=== PATIENT | female | born 1980 | race Two or more races ===

== ENCOUNTER 2024-05-08 12:22 | Inpatient (IN) | payer OTHER ==
[~2024-05-08] VITALS: Ht 157.5 cm; Wt 68.9 kg
--- NOTE | 2024-05-08 12:32 | NUR ---
PACIENTE ALERTA Y ORIENTADA X3 TRAIDA EN AMBULANCIA EN COMPANIA DE PARAMEDICOS. PACIENTE DE DERIAN. LARON DURBIN. PARAMEDICOS REFIEREN TRAER A PACIENTE POR OBSTRUCCION INTESTINAL. NGT COLOCADO. AL MOMENTO DE TRIAGE PACIENTE NO REFIERE DOLOR. SE JARAD S/V Y SE UBICA.
[2024-05-08] MEDS ORDERED: 0.9 % SODIUM CHLORIDE 1,000 ML IV STA (12:42)
--- NOTE | 2024-05-08 13:21 | NUR ---
PTE ALERTA Y ORIENTADA X3 SE LE ORIENTA SOBRE TX MEDICO LO CUAL REFIERE ENTENDER Y ACEPTAR SE REALIZAN MUESTRAS DE LAB BAJO MEDIDAS ASEPTICAS Y SE LE ADMINISTRA MEDICAMENTOS [facility] ORDEN MEDICA. PTE LLEGO CON NGT YA INSERTADO Y CANALIZADA. SE LE INSERTA KEY [facility] MEDICA BAJO MEDIDAS ASEPTICAS Y ESTERILES.
--- NOTE | 2024-05-08 13:34 | NUR ---
SE VERIFICA QUE NGT TOM EN LUGAR CON ESTOTOSCOPIO. SE AGNES CON SUCCION INTERMITENTE
[2024-05-08 14:32] LABS: HEMATOCRIT 32.3 % (36.0-45.00); MEAN CORPUSCULAR HEMOGLOBIN 21.1 pg (27.00-32.0); MEAN CORPUSCULAR HGB CONC 31.8 g/dl (32.0-36.0); PLATELET COUNT 448 K/uL (150-450); RED BLOOD COUNT 4.87 M/uL (4.00-6.00); RED CELL DISTRIBUTION WIDTH 18.3 % (11.5-14.5)
[2024-05-08 14:33] LABS: MEAN CELL VOLUME 66.5 fL (80.00-100.00)
[2024-05-08 14:36] LABS: HEMOGLOBIN 10.3 g/dL (12.0-15.00)
[2024-05-08 14:49] LABS: PH,URINE 5.5 (5.0-8.0); URINE APPEARANCE Cloudy; URINE BILIRRUBIN Small (NEGATIVE); URINE BLOOD Small; URINE COLOR Dark Yellow; URINE GLUCOSE Negative (NEGATIVE); URINE KETONE Trace (NEGATIVE); URINE LEUKOCYTE Trace; URINE NITRATE Negative
[2024-05-08 14:52] LABS: URINE BACTERIA 99.1 uL (0.0-1933); URINE CAST 6.77 uL (0.0-1.40); URINE EPITHELIAL CELLS 16.6 uL (0.0-38.8); URINE RBC 49.6 uL (0.0-20.8); URINE WBC 18.8 uL (0.0-23.2)
[2024-05-08 15:05] LABS: URINE PROTEIN 100 (NEGATIVE)
[2024-05-08 15:11] LABS: INR 1.02; PARTIAL THROMBOPLASTIN TIME 22.8 SECONDS (22.0-34.0); PROTHROMBIN TIME 11.1 SECONDS (9.0-11.5)
[2024-05-08 15:21] LABS: ALBUMIN 2.7 gm/dL (3.4-5.0); BILIRUBIN TOTAL 0.36 mg/dL (0.3-1.2); CALCIUM 9.2 mg/dL (8.5-10.1); CREATININE SERUM 0.86 mg/dL (0.55-1.02); GFR 72.36; POTASSIUM 3.23 mEq/L (3.5-5.1); TOTAL PROTEIN 8.7 gm/dL (6.4-8.2)
[2024-05-08] MEDS ORDERED: ONDANSETRON HCL 2 MG/ML VIAL IM SCH (15:28)
[2024-05-08] MEDS ORDERED: CIPROFLOXACIN IN 5 % DEXTROSE 400 MG/200 ML PIGGYBAG IV SCH (15:34)
[2024-05-08] MEDS ORDERED: ONDANSETRON HCL 2 MG/ML VIAL ONE (15:41)
[2024-05-08] MEDS ORDERED: CIPROFLOXACIN IN 5 % DEXTROSE 400 MG/200 ML PIGGYBAG IV ONE (15:41)
[2024-05-08] MEDS ORDERED: METRONIDAZOLE/SODIUM CHLORIDE 500 MG/100 ML PIGGYBACK IV ONE (15:42)
[2024-05-08 16:26] VITALS: BP 139/92
[2024-05-08] MEDS ORDERED: METRONIDAZOLE/SODIUM CHLORIDE 500 MG/100 ML PIGGYBACK IV SCH (17:00)
[2024-05-08] MEDS ORDERED: ACETAMINOPHEN 325 MG TABLET PO PRN (19:00)
[2024-05-08] MEDS ORDERED: SOD FERRIC GLUC COMPLX/SUCROSE 62.5 MG in 0.9 % SODIUM CHLORIDE 50 ML IV SCH (19:00)
[2024-05-08] MEDS ORDERED: MORPHINE SULFATE 4 MG/ML VIAL IV PRN (19:00)
[2024-05-08] MEDS ORDERED: 0.9 % SODIUM CHLORIDE 1,000 ML IV SCH (19:00)
[2024-05-08] MEDS ORDERED: POTASSIUM CHLORIDE 20MEQ/100ML H2O PB IV ONE ×2 (19:00→19:15)
[2024-05-08 20:13] LABS: COL EPI 120 SECONDS (82-175)
[2024-05-08] MEDS ORDERED: PANTOPRAZOLE SODIUM 40 MG/VIAL VIAL IV SCH (21:00)
[2024-05-08 23:55] VITALS: BP 124/80; O2SAT 100
[2024-05-09 03:00] VITALS: BP 122/72; O2SAT 96
[2024-05-09 07:44] LABS: HEMATOCRIT 28.8 % (36.0-45.00); HEMOGLOBIN 9.1 g/dL (12.0-15.00); MEAN CORPUSCULAR HEMOGLOBIN 21.2 pg (27.00-32.0); MEAN CORPUSCULAR HGB CONC 31.5 g/dl (32.0-36.0); PLATELET COUNT 438 K/uL (150-450); RED BLOOD COUNT 4.28 M/uL (4.00-6.00); RED CELL DISTRIBUTION WIDTH 17.6 % (11.5-14.5)
[2024-05-09] MEDS ORDERED: ACETAMINOPHEN 500 MG GEL..CAP PO PRN (07:45)
[2024-05-09] MEDS ORDERED: MORPHINE SULFATE 2 MG/ML CARTRIDGE IV PRN (07:45)
[2024-05-09 08:00] VITALS: BP 136/83; O2SAT 99
[2024-05-09 08:10] LABS: MEAN CELL VOLUME 67.2 fL (80.00-100.00)
[2024-05-09] MEDS ORDERED: ENOXAPARIN SODIUM 40 MG/0.4 ML SYRINGE SUBCUTANEO SCH (09:00)
[2024-05-09 09:01] LABS: CALCIUM 8.1 mg/dL (8.5-10.1); CREATININE SERUM 0.76 mg/dL (0.55-1.02); GFR 83.46; MAGNESIUM 2.1 mg/dL (1.8-2.4); PHOSPHOROUS 2.9 mg/dL (2.5-4.9); POTASSIUM 3.92 mEq/L (3.5-5.1)
[2024-05-09] MEDS ORDERED: FUROsemide 20 MG/2 ML VIAL IV SCH (10:30)
[2024-05-09 15:28] LABS: AMYLASE 74 U/L (25-115); LIPASE 90 U/L (13-75)
[2024-05-09] MEDS ORDERED: AMINO ACIDS 4.25 %/DEXTROSE 5% 1,000 ML PERIFERAL SCH (17:00)
[2024-05-09 17:10] VITALS: BP 133/83; O2SAT 98
[2024-05-10 00:04] VITALS: BP 124/80; O2SAT 96
[2024-05-10 03:49] LABS: HEMATOCRIT 35.9 % (36.0-45.00); HEMOGLOBIN 11.8 g/dL (12.0-15.00); MEAN CELL VOLUME 70.5 fL (80.00-100.00); MEAN CORPUSCULAR HEMOGLOBIN 23.1 pg (27.00-32.0); MEAN CORPUSCULAR HGB CONC 32.8 g/dl (32.0-36.0); PLATELET COUNT 416 K/uL (150-450); RED CELL DISTRIBUTION WIDTH 22.7 % (11.5-14.5)
[2024-05-10 04:00] LABS: CHOL HDL RATIO 5.1 (0-5.0)
[2024-05-10 09:27] VITALS: BP 108/69; O2SAT 96
[2024-05-10 15:41] VITALS: BP 117/84; O2SAT 95
[2024-05-11 00:16] VITALS: BP 94/60; O2SAT 96
[2024-05-11 06:49] LABS: HEMATOCRIT 35.9 % (36.0-45.00); HEMOGLOBIN 11.8 g/dL (12.0-15.00); MEAN CELL VOLUME 71.7 fL (80.00-100.00); MEAN CORPUSCULAR HEMOGLOBIN 23.5 pg (27.00-32.0); MEAN CORPUSCULAR HGB CONC 32.7 g/dl (32.0-36.0); PLATELET COUNT 388 K/uL (150-450); RED BLOOD COUNT 5.01 M/uL (4.00-6.00); RED CELL DISTRIBUTION WIDTH 22.6 % (11.5-14.5)
[2024-05-11 07:20] LABS: CALCIUM 8.2 mg/dL (8.5-10.1); CREATININE SERUM 0.62 mg/dL (0.55-1.02); GFR 105.56; MAGNESIUM 1.5 mg/dL (1.8-2.4); PHOSPHOROUS 2.7 mg/dL (2.5-4.9)
[2024-05-11 07:26] LABS: POTASSIUM 3.47 mEq/L (3.5-5.1)
[2024-05-11] MEDS ORDERED: MAGNESIUM SULFATE IN WATER 50 ML IV NR (11:00)
[2024-05-11] MEDS ORDERED: POTASSIUM CHLORIDE 20MEQ/100ML H2O PB IV NR (11:19)
[2024-05-11] MEDS ORDERED: PIPERACILLIN/TAZOBACTAM SODIUM 4.5 GM in 0.9 % SODIUM CHLORIDE 100 ML IV SCH (12:00)
[2024-05-11] MEDS ORDERED: DIATRIZOATE MEGLUMINE, SODIUM 30 ML BOTTLE PO NR (14:30)
[2024-05-11 17:00] VITALS: BP 133/76; O2SAT 95
[2024-05-11] MEDS ORDERED: DIATRIZOATE MEGLUMINE, SODIUM 30 ML BOTTLE ONE (18:34)
[2024-05-12] VITALS: BP 109/75; O2SAT 96
[2024-05-12 09:04] LABS: HEMATOCRIT 37.5 % (36.0-45.00); HEMOGLOBIN 12.4 g/dL (12.0-15.00); MEAN CELL VOLUME 71.5 fL (80.00-100.00); MEAN CORPUSCULAR HEMOGLOBIN 23.7 pg (27.00-32.0); MEAN CORPUSCULAR HGB CONC 33.1 g/dl (32.0-36.0); RED BLOOD COUNT 5.24 M/uL (4.00-6.00); RED CELL DISTRIBUTION WIDTH 22.9 % (11.5-14.5)
[2024-05-12 11:09] LABS: PLATELET COUNT 421 K/uL (150-450)
[2024-05-12 11:58] VITALS: BP 141/87; O2SAT 99
[2024-05-12 16:00] VITALS: BP 143/79; O2SAT 97
[2024-05-13 00:03] VITALS: BP 141/73; O2SAT 99
[2024-05-13 08:00] VITALS: BP 138/86; O2SAT 96
[2024-05-13 15:59] VITALS: BP 117/82; O2SAT 97
[2024-05-13] MEDS ORDERED: NA PHOS,M-B/NA PHOS,DI-BA 1 BOTTLE ENEMA RECTAL SCH (18:00)
[2024-05-14 00:10] VITALS: BP 147/84; O2SAT 97
[2024-05-14 06:48] LABS: HEMATOCRIT 39.3 % (36.0-45.00); HEMOGLOBIN 12.6 g/dL (12.0-15.00); MEAN CORPUSCULAR HEMOGLOBIN 23.1 pg (27.00-32.0); MEAN CORPUSCULAR HGB CONC 32.2 g/dl (32.0-36.0); PLATELET COUNT 388 K/uL (150-450); RED BLOOD COUNT 5.46 M/uL (4.00-6.00); RED CELL DISTRIBUTION WIDTH 23.3 % (11.5-14.5)
[2024-05-14 06:55] LABS: INR 1.18; PARTIAL THROMBOPLASTIN TIME 29.3 SECONDS (22.0-34.0); PROTHROMBIN TIME 12.7 SECONDS (9.0-11.5)
[2024-05-14] MEDS ORDERED: CEFTRIAXONE SODIUM 2,000 MG in 0.9 % SODIUM CHLORIDE 50 ML IV ONE (07:00)
[2024-05-14] MEDS ORDERED: METRONIDAZOLE/SODIUM CHLORIDE 200 ML IV ONE (07:00)
[2024-05-14] MEDS ORDERED: BUPIVACAINE HCL/MPF 0.5% 30ML VIAL ONE (07:02)
[2024-05-14] MEDS ORDERED: POVIDONE-IODINE 118 ML BOTT TOP ONE (07:02)
[2024-05-14] MEDS ORDERED: VISTASEAL DUAL APPICATOR 1 EACH APPL TOP ONE ×2 (07:03→14:15)
[2024-05-14] MEDS ORDERED: LIDOCAINE HCL 1%/EPINEPHRINE 20ML VIAL IJ ONE (07:03)
[2024-05-14] MEDS ORDERED: THROMBIN,HU/FIBRINOGEN/CALCIUM 10 ML SYRINGE TOP ONE ×4 (07:03→14:15)
[2024-05-14 07:28] LABS: ALBUMIN 2.3 gm/dL (3.4-5.0); BILIRUBIN TOTAL 0.34 mg/dL (0.3-1.2); BILIRUBIN,CONJUGATED 0.13 mg/dL (0.0-0.2); BILIRUBIN,UNCONJUGATED 0.21 mg/dL (0.0-0.6); CALCIUM 8.2 mg/dL (8.5-10.1); CREATININE SERUM 0.68 mg/dL (0.55-1.02); GFR 94.89; GLOBULINA 4.6 G/DL (2.4-3.5); POTASSIUM 3.06 mEq/L (3.5-5.1); TOTAL PROTEIN 6.9 gm/dL (6.4-8.2)
[2024-05-14] MEDS ORDERED: hydrALAZINE HCL 20 MG VIAL ONE (08:01)
[2024-05-14] MEDS ORDERED: CALCIUM GLUCONATE 100 MG/ML VIAL IV ONE (09:15)
[2024-05-14 10:18] LABS: UREA CLEARANCE 49.6 ML/MIN
[2024-05-14] MEDS ORDERED: MORPHINE SULFATE 4 MG/ML CARTRIDGE IV PRN (16:15)
[2024-05-14] MEDS ORDERED: DEXTROSE 50 % IN WATER 0.5 G/ML DISP.SYRIN IV PRN (16:15)
[2024-05-14] MEDS ORDERED: ONDANSETRON HCL 2 MG/ML VIAL IV PRN (16:15)
[2024-05-14] MEDS ORDERED: PIPERACILLIN/TAZOBACTAM SODIUM 3.375 GM VIAL IV ONE ×3 (16:28→19:49)
[2024-05-14] MEDS ORDERED: CEFAZOLIN SODIUM 1,000 MG VIAL ONE (16:28)
[2024-05-14] MEDS ORDERED: HYOSCYAMINE SULFATE 0.125 MG TAB.SUBL SL SCH (17:00)
[2024-05-14] MEDS ORDERED: METOCLOPRAMIDE HCL 5 MG/ML VIAL IV SCH (17:00)
[2024-05-14] MEDS ORDERED: GABAPENTIN 300 MG CAPSULE PO SCH (17:00)
[2024-05-14] MEDS ORDERED: SUGAMMADEX SODIUM 200 MG/2 ML VIAL IV ONE ×2 (17:23→18:30)
[2024-05-14] MEDS ORDERED: CEFAZOLIN SODIUM 1,000 MG VIAL IV ONE (18:30)
[2024-05-14 18:43] LABS: HEMATOCRIT 38.7 % (36.0-45.00); HEMOGLOBIN 12.1 g/dL (12.0-15.00); MEAN CELL VOLUME 80.1 fL (80.00-100.00); MEAN CORPUSCULAR HEMOGLOBIN 25.1 pg (27.00-32.0); MEAN CORPUSCULAR HGB CONC 31.3 g/dl (32.0-36.0); PLATELET COUNT 330 K/uL (150-450); RED BLOOD COUNT 4.83 M/uL (4.00-6.00)
[2024-05-14] MEDS ORDERED: MORPHINE SULFATE 4 MG/ML VIAL IV ONE ×2 (18:45→19:15)
[2024-05-14] MEDS ORDERED: AMINO ACIDS 4.25 %/DEXTROSE 5% 1,000 ML PERIFERAL SCH (18:52)
[2024-05-14] MEDS ORDERED: METOCLOPRAMIDE HCL 5 MG/ML VIAL ONE (19:44)
[2024-05-14 20:05] LABS: INR 1.29; PARTIAL THROMBOPLASTIN TIME 29.5 SECONDS (22.0-34.0); PROTHROMBIN TIME 13.8 SECONDS (9.0-11.5)
[2024-05-14] MEDS ORDERED: FAMOTIDINE/PF 20 MG/2 ML VIAL IV PUSH SCH (21:00)
[2024-05-14 21:19] VITALS: BP 111/76; O2SAT 100
[2024-05-14 23:18] LABS: HEMATOCRIT 36.6 % (36.0-45.00); HEMOGLOBIN 12.1 g/dL (12.0-15.00); MEAN CELL VOLUME 77.2 fL (80.00-100.00); MEAN CORPUSCULAR HEMOGLOBIN 25.6 pg (27.00-32.0); MEAN CORPUSCULAR HGB CONC 33.1 g/dl (32.0-36.0); PLATELET COUNT 237 K/uL (150-450); RED BLOOD COUNT 4.74 M/uL (4.00-6.00); RED CELL DISTRIBUTION WIDTH 23.5 % (11.5-14.5)
[2024-05-14] MEDS ORDERED: RINGERS SOLUTION,LACTATED 1,000 ML IV SCH (23:45)
[2024-05-15 01:33] VITALS: BP 123/83; O2SAT 99
[2024-05-15 06:56] LABS: HEMOGLOBIN 10.9 g/dL (12.0-15.00); MEAN CELL VOLUME 76.2 fL (80.00-100.00); MEAN CORPUSCULAR HEMOGLOBIN 25.9 pg (27.00-32.0); PLATELET COUNT 216 K/uL (150-450); RED CELL DISTRIBUTION WIDTH 23.6 % (11.5-14.5)
[2024-05-15 07:29] LABS: ALBUMIN 1.6 gm/dL (3.4-5.0); CALCIUM 6.9 mg/dL (8.5-10.1); CREATININE SERUM 0.71 mg/dL (0.55-1.02); GFR 90.27; PHOSPHOROUS 2.4 mg/dL (2.5-4.9); POTASSIUM 3.18 mEq/L (3.5-5.1)
[2024-05-15 07:52] LABS: MAGNESIUM 1.3 mg/dL (1.8-2.4)
[2024-05-15 08:48] VITALS: BP 111/81; O2SAT 95
[2024-05-15] MEDS ORDERED: MEPERIDINE HCL/PF 50 MG/ML VIAL IV SCH (09:11)
[2024-05-15] MEDS ORDERED: PROMETHAZINE HCL 25 MG/ML AMPUL IV NR (09:30)
[2024-05-15] MEDS ORDERED: MAGNESIUM SULFATE IN WATER 50 ML IV NR (11:00)
[2024-05-15] MEDS ORDERED: POTASSIUM CHLORIDE 20MEQ/100ML H2O PB IV NR (13:00)
[2024-05-15] MEDS ORDERED: PROMETHAZINE HCL 50 MG/ML AMPUL IV SCH (14:00)
[2024-05-15] MEDS ORDERED: PROMETHAZINE HCL 25 MG/ML AMPUL IV SCH (14:00)
[2024-05-15 16:00] VITALS: BP 138/78; BP 143/69; O2SAT 98; O2SAT 99
[2024-05-15] MEDS ORDERED: AMINO ACIDS 4.25 %/DEXTROSE 5% 1,000 ML PERIFERAL SCH (17:00)
[2024-05-15] MEDS ORDERED: POTASSIUM PHOS,M-BASIC-D-BASIC 15 MM in 0.9 % SODIUM CHLORIDE 250 ML IV ONE (19:00)
[2024-05-16 00:10] VITALS: BP 128/87; O2SAT 95
[2024-05-16 07:53] LABS: HEMATOCRIT 29.2 % (36.0-45.00); HEMOGLOBIN 9.7 g/dL (12.0-15.00); MEAN CELL VOLUME 76.7 fL (80.00-100.00); MEAN CORPUSCULAR HEMOGLOBIN 25.6 pg (27.00-32.0); MEAN CORPUSCULAR HGB CONC 33.3 g/dl (32.0-36.0); PLATELET COUNT 254 K/uL (150-450); RED BLOOD COUNT 3.81 M/uL (4.00-6.00); RED CELL DISTRIBUTION WIDTH 24.2 % (11.5-14.5)
[2024-05-16 08:00] VITALS: BP 131/88; O2SAT 97
[2024-05-16 08:31] LABS: CALCIUM 7.7 mg/dL (8.5-10.1); CREATININE SERUM 0.43 mg/dL (0.55-1.02); GFR 161.03; MAGNESIUM 1.8 mg/dL (1.8-2.4); POTASSIUM 3.24 mEq/L (3.5-5.1)
[2024-05-16] MEDS ORDERED: SOD FERRIC GLUC COMPLX/SUCROSE 62.5 MG in 0.9 % SODIUM CHLORIDE 50 ML IV SCH (09:00)
[2024-05-16] MEDS ORDERED: AMINOCAPROIC ACID 250 MG/ML VIAL IV STA (09:00)
[2024-05-16] MEDS ORDERED: ENOXAPARIN SODIUM 40 MG/0.4 ML SYRINGE SUBCUTANEO SCH (09:00)
[2024-05-16] MEDS ORDERED: FUROsemide 20 MG/2 ML VIAL IV SCH (09:15)
[2024-05-16] MEDS ORDERED: POTASSIUM PHOS,M-BASIC-D-BASIC 15 MM in 0.9 % SODIUM CHLORIDE 250 ML IV NR (11:30)
[2024-05-16] MEDS ORDERED: POTASSIUM CHLORIDE 20MEQ/100ML H2O PB IV NR (11:30)
[2024-05-16] MEDS ORDERED: MAGNESIUM SULFATE IN WATER 50 ML IV NR (11:30)
[2024-05-16] MEDS ORDERED: AMINOCAPROIC ACID 20 MG/ML ML IV SCH (12:00)
[2024-05-16 16:00] VITALS: BP 108/73; O2SAT 97
[2024-05-17 01:48] VITALS: BP 98/65; O2SAT 97
[2024-05-17] MEDS ORDERED: THIAMINE HCL 100 MG/ML 2 ML VIAL IV SCH (09:29)
[2024-05-17] MEDS ORDERED: MULTIVIT INFUSN,ADULT 4,VIT K 10 ML VIAL IV SCH (09:29)
[2024-05-17 09:48] VITALS: BP 129/91; O2SAT 97
[2024-05-17] MEDS ORDERED: PANTOPRAZOLE SODIUM 40 MG/VIAL VIAL IV STA (10:34)
[2024-05-17 11:34] LABS: HEMATOCRIT 36.1 % (36.0-45.00); HEMOGLOBIN 12.2 g/dL (12.0-15.00); MEAN CELL VOLUME 78.4 fL (80.00-100.00); MEAN CORPUSCULAR HEMOGLOBIN 26.6 pg (27.00-32.0); MEAN CORPUSCULAR HGB CONC 33.9 g/dl (32.0-36.0); PLATELET COUNT 346 K/uL (150-450); RED BLOOD COUNT 4.61 M/uL (4.00-6.00); RED CELL DISTRIBUTION WIDTH 22.5 % (11.5-14.5)
[2024-05-17 12:41] LABS: CALCIUM 8.1 mg/dL (8.5-10.1); CREATININE SERUM 0.68 mg/dL (0.55-1.02); GFR 94.89; PHOSPHOROUS 2.1 mg/dL (2.5-4.9); POTASSIUM 3.37 mEq/L (3.5-5.1)
[2024-05-17] MEDS ORDERED: POTASSIUM PHOS,M-BASIC-D-BASIC 3 MM/ML VIAL IV NR (13:00)
[2024-05-17] MEDS ORDERED: POTASSIUM CHLORIDE 20MEQ/100ML H2O PB IV NR (13:15)
[2024-05-17 16:00] VITALS: BP 139/89; O2SAT 95
[2024-05-17] MEDS ORDERED: FAMOTIDINE/PF 20 MG/2 ML VIAL IV PUSH SCH (21:00)
[2024-05-18] VITALS: BP 134/82; O2SAT 94
[2024-05-18] MEDS ORDERED: PROMETHAZINE HCL 25 MG/ML AMPUL IV SCH (02:00)
[2024-05-18] MEDS ORDERED: MEPERIDINE HCL/PF 50 MG/ML VIAL IV SCH (02:00)
[2024-05-18 06:33] LABS: HEMATOCRIT 33.6 % (36.0-45.00); HEMOGLOBIN 11.6 g/dL (12.0-15.00); MEAN CORPUSCULAR HEMOGLOBIN 26.9 pg (27.00-32.0); MEAN CORPUSCULAR HGB CONC 34.5 g/dl (32.0-36.0); PLATELET COUNT 486 K/uL (150-450); RED CELL DISTRIBUTION WIDTH 22.1 % (11.5-14.5)
[2024-05-18 07:18] LABS: BILIRUBIN TOTAL 1.33 mg/dL (0.3-1.2); CALCIUM 7.9 mg/dL (8.5-10.1); CREATININE SERUM 0.48 mg/dL (0.55-1.02); GFR 141.83; GLOBULINA 3.8 G/DL (2.4-3.5); MAGNESIUM 1.6 mg/dL (1.8-2.4); PHOSPHOROUS 2.5 mg/dL (2.5-4.9); POTASSIUM 3.17 mEq/L (3.5-5.1); TOTAL PROTEIN 5.8 gm/dL (6.4-8.2)
[2024-05-18 08:00] VITALS: BP 169/75; O2SAT 99
[2024-05-18] MEDS ORDERED: PANTOPRAZOLE SODIUM 40 MG/VIAL VIAL IV SCH (09:00)
[2024-05-18 16:18] VITALS: BP 136/89; O2SAT 96
[2024-05-19 00:20] VITALS: BP 126/85; O2SAT 97
[2024-05-19 08:00] VITALS: BP 131/84; O2SAT 96
[2024-05-19 16:00] VITALS: BP 128/81; O2SAT 96
[2024-05-19] MEDS ORDERED: MAGNESIUM SULFATE/D5W 100 ML IV NR (16:00)
[2024-05-19] MEDS ORDERED: POTASSIUM CHLORIDE IN WATER 100 ML IV NR (18:00)
[2024-05-20] VITALS: BP 100/65; O2SAT 96
[2024-05-20 08:00] VITALS: BP 110/65; O2SAT 95
[2024-05-20 08:03] LABS: ALBUMIN 2.1 gm/dL (3.4-5.0); BILIRUBIN TOTAL 1.59 mg/dL (0.3-1.2); CALCIUM 8.1 mg/dL (8.5-10.1); CREATININE SERUM 0.62 mg/dL (0.55-1.02); GFR 105.56; GLOBULINA 4.1 G/DL (2.4-3.5); POTASSIUM 3.44 mEq/L (3.5-5.1); TOTAL PROTEIN 6.2 gm/dL (6.4-8.2)
[2024-05-20 08:16] LABS: HEMATOCRIT 35.5 % (36.0-45.00); HEMOGLOBIN 11.8 g/dL (12.0-15.00); MEAN CELL VOLUME 80.2 fL (80.00-100.00); MEAN CORPUSCULAR HEMOGLOBIN 26.5 pg (27.00-32.0); MEAN CORPUSCULAR HGB CONC 33.1 g/dl (32.0-36.0); PLATELET COUNT 660 K/uL (150-450); RED BLOOD COUNT 4.43 M/uL (4.00-6.00); RED CELL DISTRIBUTION WIDTH 22.9 % (11.5-14.5)
[2024-05-20] MEDS ORDERED: ENOXAPARIN SODIUM 40 MG/0.4 ML SYRINGE SUBCUTANEO STA (14:58)
[2024-05-20 16:00] VITALS: BP 112/79; O2SAT 95
[2024-05-20] MEDS ORDERED: KETOROLAC TROMETHAMINE 30 MG VIAL IV ONE (18:30)
[2024-05-20] MEDS ORDERED: KETOROLAC TROMETHAMINE 30 MG VIAL ONE (18:32)
[2024-05-21] MEDS ORDERED: DIATRIZOATE MEGLUMINE, SODIUM 30 ML BOTTLE PO NR (06:00)
[2024-05-21 06:55] LABS: HEMATOCRIT 36.4 % (36.0-45.00); HEMOGLOBIN 12.2 g/dL (12.0-15.00); MEAN CELL VOLUME 79.4 fL (80.00-100.00); MEAN CORPUSCULAR HEMOGLOBIN 26.5 pg (27.00-32.0); MEAN CORPUSCULAR HGB CONC 33.4 g/dl (32.0-36.0); PLATELET COUNT 786 K/uL (150-450); RED BLOOD COUNT 4.58 M/uL (4.00-6.00); RED CELL DISTRIBUTION WIDTH 22.8 % (11.5-14.5)
[2024-05-21 07:23] LABS: INR 1.09; PARTIAL THROMBOPLASTIN TIME 27.1 SECONDS (22.0-34.0); PROTHROMBIN TIME 11.8 SECONDS (9.0-11.5)
[2024-05-21 08:29] LABS: ALBUMIN 2.2 gm/dL (3.4-5.0); BILIRUBIN TOTAL 1.51 mg/dL (0.3-1.2); CALCIUM 8.4 mg/dL (8.5-10.1); CHOL HDL RATIO 5.3 (0-5.0); CREATININE SERUM 0.63 mg/dL (0.55-1.02); GFR 103.63; GLOBULINA 4.2 G/DL (2.4-3.5); POTASSIUM 3.33 mEq/L (3.5-5.1); TOTAL PROTEIN 6.4 gm/dL (6.4-8.2)
[2024-05-21 08:32] LABS: UREA CLEARANCE 35.2 ML/MIN
[2024-05-21] MEDS ORDERED: ENOXAPARIN SODIUM 40 MG/0.4 ML SYRINGE SUBCUTANEO SCH (09:00)
[2024-05-22 08:00] VITALS: BP 135/85; O2SAT 99
[2024-05-22 16:00] VITALS: BP 130/83; O2SAT 100
[2024-05-23] VITALS: BP 115/72; O2SAT 95
[2024-05-23 09:05] VITALS: BP 101/64; O2SAT 97
[2024-05-23] MEDS ORDERED: 0.9 % SODIUM CHLORIDE 1,000 ML IV SCH (13:15)
[2024-05-23 16:00] VITALS: BP 116/79; O2SAT 99
[2024-05-24 00:15] VITALS: BP 124/79; O2SAT 98
[2024-05-24 06:57] LABS: HEMATOCRIT 34.2 % (36.0-45.00); HEMOGLOBIN 11.2 g/dL (12.0-15.00); MEAN CELL VOLUME 80.6 fL (80.00-100.00); MEAN CORPUSCULAR HEMOGLOBIN 26.4 pg (27.00-32.0); MEAN CORPUSCULAR HGB CONC 32.7 g/dl (32.0-36.0); PLATELET COUNT 706 K/uL (150-450); RED BLOOD COUNT 4.25 M/uL (4.00-6.00); RED CELL DISTRIBUTION WIDTH 21.9 % (11.5-14.5)
[2024-05-24 07:50] VITALS: BP 116/78; O2SAT 99
[2024-05-24 08:03] LABS: ALBUMIN 2.3 gm/dL (3.4-5.0); BILIRUBIN TOTAL 0.85 mg/dL (0.3-1.2); CALCIUM 8.4 mg/dL (8.5-10.1); CREATININE SERUM 0.6 mg/dL (0.55-1.02); GFR 109.63; GLOBULINA 4.2 G/DL (2.4-3.5); MAGNESIUM 1.7 mg/dL (1.8-2.4); TOTAL PROTEIN 6.5 gm/dL (6.4-8.2)
[2024-05-24 08:23] LABS: POTASSIUM 2.96 mEq/L (3.5-5.1)
[2024-05-24] MEDS ORDERED: POTASSIUM CHLORIDE IN WATER 100 ML IV NR ×2 (10:00→17:00)
[2024-05-24 16:00] VITALS: BP 127/81; O2SAT 98
[2024-05-24 23:46] VITALS: BP 98/53; O2SAT 100
[2024-05-25 09:14] VITALS: BP 105/79; O2SAT 97
[2024-05-25 16:00] VITALS: BP 117/78; O2SAT 98
[2024-05-26] VITALS: BP 117/82; O2SAT 97
[2024-05-26 08:21] VITALS: BP 114/80; O2SAT 96
[2024-05-26 08:31] LABS: ALBUMIN 2.5 gm/dL (3.4-5.0); BILIRUBIN TOTAL 0.58 mg/dL (0.3-1.2); CALCIUM 8.8 mg/dL (8.5-10.1); CREATININE SERUM 0.57 mg/dL (0.55-1.02); GFR 116.32; GLOBULINA 4.6 G/DL (2.4-3.5); MAGNESIUM 1.9 mg/dL (1.8-2.4); PHOSPHOROUS 3.1 mg/dL (2.5-4.9); POTASSIUM 3.6 mEq/L (3.5-5.1); TOTAL PROTEIN 7.1 gm/dL (6.4-8.2)
[2024-05-26 16:12] VITALS: BP 100/78; O2SAT 97
[2024-05-27] VITALS: BP 101/62; O2SAT 99
[2024-05-27 08:00] VITALS: BP 110/75; O2SAT 96
[2024-05-27 08:03] LABS: HEMATOCRIT 34.9 % (36.0-45.00); HEMOGLOBIN 11.7 g/dL (12.0-15.00); MEAN CELL VOLUME 79.9 fL (80.00-100.00); MEAN CORPUSCULAR HEMOGLOBIN 26.7 pg (27.00-32.0); MEAN CORPUSCULAR HGB CONC 33.5 g/dl (32.0-36.0); PLATELET COUNT 522 K/uL (150-450); RED BLOOD COUNT 4.37 M/uL (4.00-6.00); RED CELL DISTRIBUTION WIDTH 21.9 % (11.5-14.5)
[2024-05-27 08:12] LABS: ALBUMIN 2.6 gm/dL (3.4-5.0); BILIRUBIN TOTAL 0.58 mg/dL (0.3-1.2); CREATININE SERUM 0.57 mg/dL (0.55-1.02); GFR 116.32; GLOBULINA 4.7 G/DL (2.4-3.5); MAGNESIUM 1.8 mg/dL (1.8-2.4); PHOSPHOROUS 3.7 mg/dL (2.5-4.9); POTASSIUM 3.18 mEq/L (3.5-5.1); TOTAL PROTEIN 7.3 gm/dL (6.4-8.2)
[2024-05-27] MEDS ORDERED: POTASSIUM CHLORIDE IN WATER 100 ML IV NR (12:30)
[2024-05-27 16:06] VITALS: BP 94/69; O2SAT 97
[2024-05-28] VITALS: BP 111/76; O2SAT 97
[2024-05-28 07:58] LABS: HEMATOCRIT 35.4 % (36.0-45.00); HEMOGLOBIN 11.4 g/dL (12.0-15.00); MEAN CORPUSCULAR HEMOGLOBIN 26.1 pg (27.00-32.0); MEAN CORPUSCULAR HGB CONC 32.2 g/dl (32.0-36.0); PLATELET COUNT 497 K/uL (150-450); RED BLOOD COUNT 4.38 M/uL (4.00-6.00); RED CELL DISTRIBUTION WIDTH 21.4 % (11.5-14.5)
[2024-05-28 08:26] LABS: INR 2.41; PARTIAL THROMBOPLASTIN TIME 37.2 SECONDS (22.0-34.0)
[2024-05-28 08:38] LABS: ALBUMIN 2.7 gm/dL (3.4-5.0); BILIRUBIN TOTAL 0.52 mg/dL (0.3-1.2); BILIRUBIN,CONJUGATED 0.3 mg/dL (0.0-0.2); BILIRUBIN,UNCONJUGATED 0.22 mg/dL (0.0-0.6); CALCIUM 9.1 mg/dL (8.5-10.1); CHOL HDL RATIO 5.3 (0-5.0); CREATININE SERUM 0.62 mg/dL (0.55-1.02); GFR 105.56; GLOBULINA 4.9 G/DL (2.4-3.5); MAGNESIUM 1.7 mg/dL (1.8-2.4); POTASSIUM 3.83 mEq/L (3.5-5.1); TOTAL PROTEIN 7.6 gm/dL (6.4-8.2)
[2024-05-28 08:55] VITALS: BP 100/63; O2SAT 97
[2024-05-28 09:25] LABS: PROTHROMBIN TIME 24.6 SECONDS (9.0-11.5)
[2024-05-28 10:07] LABS: UREA CLEARANCE 20.3 ML/MIN
[2024-05-28] MEDS ORDERED: MAGNESIUM SULFATE IN WATER 4 GM/100 ML PIGGYBACK IV NR (13:00)
[2024-05-28] MEDS ORDERED: ALPRAzolam 0.5 MG TABLET PO STA (13:20)
[2024-05-28] MEDS ORDERED: PHYTONADIONE 10 MG/ML AMPUL SUBCUTANEO NR (14:30)
[2024-05-28 16:45] VITALS: BP 102/73; O2SAT 95
[2024-05-29 00:44] VITALS: BP 93/65; O2SAT 97
[2024-05-29 07:06] LABS: HEMATOCRIT 34.2 % (36.0-45.00); HEMOGLOBIN 11.2 g/dL (12.0-15.00); MEAN CELL VOLUME 80.2 fL (80.00-100.00); MEAN CORPUSCULAR HEMOGLOBIN 26.2 pg (27.00-32.0); MEAN CORPUSCULAR HGB CONC 32.6 g/dl (32.0-36.0); PLATELET COUNT 498 K/uL (150-450); RED BLOOD COUNT 4.26 M/uL (4.00-6.00); RED CELL DISTRIBUTION WIDTH 21.1 % (11.5-14.5)
[2024-05-29 08:15] LABS: CALCIUM 9.2 mg/dL (8.5-10.1); CREATININE SERUM 0.67 mg/dL (0.55-1.02); GFR 96.52; PHOSPHOROUS 3.8 mg/dL (2.5-4.9); POTASSIUM 3.48 mEq/L (3.5-5.1)
[2024-05-29 08:26] VITALS: BP 125/82; O2SAT 100
[2024-05-29] MEDS ORDERED: PHYTONADIONE 10 MG/ML AMPUL SUBCUTANEO SCH (09:00)
[2024-05-29 12:02] LABS: INR 1.17; PARTIAL THROMBOPLASTIN TIME 28.5 SECONDS (22.0-34.0); PROTHROMBIN TIME 12.6 SECONDS (9.0-11.5)
[2024-05-29] MEDS ORDERED: POTASSIUM CHLORIDE 20MEQ/100ML H2O PB IV NR (13:41)
[2024-05-29 16:00] VITALS: BP 104/70; O2SAT 97
[2024-05-30] VITALS: BP 91/65; O2SAT 98
[2024-05-30 08:59] VITALS: BP 100/60; O2SAT 100
[2024-05-30 11:29] LABS: HEMOGLOBIN 11.9 g/dL (12.0-15.00); MEAN CELL VOLUME 79.6 fL (80.00-100.00); MEAN CORPUSCULAR HEMOGLOBIN 26.9 pg (27.00-32.0); MEAN CORPUSCULAR HGB CONC 33.9 g/dl (32.0-36.0); PLATELET COUNT 506 K/uL (150-450); RED CELL DISTRIBUTION WIDTH 21.2 % (11.5-14.5)
[2024-05-30 11:47] LABS: INR 1.08; PROTHROMBIN TIME 11.7 SECONDS (9.0-11.5)
[2024-05-30 12:05] LABS: ALBUMIN 3.3 gm/dL (3.4-5.0); BILIRUBIN TOTAL 0.81 mg/dL (0.3-1.2); BILIRUBIN,CONJUGATED 0.43 mg/dL (0.0-0.2); BILIRUBIN,UNCONJUGATED 0.38 mg/dL (0.0-0.6); CREATININE SERUM 0.84 mg/dL (0.55-1.02); GFR 74.35; POTASSIUM 3.41 mEq/L (3.5-5.1); TOTAL PROTEIN 8.7 gm/dL (6.4-8.2)
[2024-05-30 12:06] LABS: C-REACTIVE PROTEIN 3.43 MG/DL (0.00-0.29)
[2024-05-30 17:21] VITALS: BP 11/69; O2SAT 99
[2024-05-31] VITALS: BP 110/74; O2SAT 100
[2024-05-31] MEDS ORDERED: POTASSIUM CHLORIDE 20MEQ/100ML H2O PB IV ONE (06:15)
[2024-05-31 08:10] VITALS: BP 112/72; O2SAT 100
[2024-05-31] MEDS ORDERED: HYOSCYAMINE SULFATE 0.125 MG TAB.SUBL SL PRN (15:12)
[2024-05-31 16:23] VITALS: BP 106/78; O2SAT 100
[2024-06-01 00:56] VITALS: BP 109/72; O2SAT 98
[2024-06-01 09:00] VITALS: BP 103/72; O2SAT 99
[2024-06-01] MEDS ORDERED: PANTOPRAZOLE SODIUM 40 MG TABLET.DR PO SCH (09:00)
[2024-06-01 11:57] LABS: HEMATOCRIT 36.6 % (36.0-45.00); HEMOGLOBIN 12.1 g/dL (12.0-15.00); MEAN CELL VOLUME 81.1 fL (80.00-100.00); MEAN CORPUSCULAR HEMOGLOBIN 26.8 pg (27.00-32.0); MEAN CORPUSCULAR HGB CONC 33.1 g/dl (32.0-36.0); PLATELET COUNT 512 K/uL (150-450); RED BLOOD COUNT 4.51 M/uL (4.00-6.00); RED CELL DISTRIBUTION WIDTH 20.8 % (11.5-14.5)
[2024-06-01 12:13] LABS: ALBUMIN 3.8 gm/dL (3.4-5.0); BILIRUBIN TOTAL 0.67 mg/dL (0.3-1.2); BILIRUBIN,CONJUGATED 0.35 mg/dL (0.0-0.2); BILIRUBIN,UNCONJUGATED 0.32 mg/dL (0.0-0.6); CALCIUM 10.5 mg/dL (8.5-10.1); CREATININE SERUM 1.46 mg/dL (0.55-1.02); GFR 39.29; GLOBULINA 5.6 G/DL (2.4-3.5); MAGNESIUM 1.7 mg/dL (1.8-2.4); POTASSIUM 4.07 mEq/L (3.5-5.1); TOTAL PROTEIN 9.4 gm/dL (6.4-8.2)
[2024-06-01 16:20] VITALS: BP 104/57; O2SAT 99
[2024-06-02] VITALS: BP 102/72; O2SAT 95
[2024-06-02] MEDS ORDERED: 0.9 % SODIUM CHLORIDE 1,000 ML IV SCH (05:30)
[2024-06-02 08:27] LABS: HEMATOCRIT 33.7 % (36.0-45.00); HEMOGLOBIN 11.5 g/dL (12.0-15.00); MEAN CELL VOLUME 79.3 fL (80.00-100.00); PLATELET COUNT 460 K/uL (150-450); RED BLOOD COUNT 4.24 M/uL (4.00-6.00); RED CELL DISTRIBUTION WIDTH 20.6 % (11.5-14.5)
[2024-06-02 08:57] LABS: ALBUMIN 3.5 gm/dL (3.4-5.0); BILIRUBIN TOTAL 0.63 mg/dL (0.3-1.2); CREATININE SERUM 1.39 mg/dL (0.55-1.02); GFR 41.58; MAGNESIUM 1.8 mg/dL (1.8-2.4); PHOSPHOROUS 4.8 mg/dL (2.5-4.9); POTASSIUM 3.74 mEq/L (3.5-5.1); TOTAL PROTEIN 8.5 gm/dL (6.4-8.2)
[2024-06-02 09:26] VITALS: BP 88/65; O2SAT 96
[2024-06-02] MEDS ORDERED: PHYTONADIONE 10 MG/ML AMPUL SUBCUTANEO STA (12:10)
[2024-06-02 16:00] VITALS: BP 110/76; O2SAT 98
[2024-06-03] VITALS: BP 95/65; O2SAT 98
[2024-06-03 09:13] VITALS: BP 104/73; O2SAT 96
[2024-06-03 13:13] LABS: BILIRUBIN TOTAL 0.42 mg/dL (0.3-1.2); BILIRUBIN,CONJUGATED 0.25 mg/dL (0.0-0.2); BILIRUBIN,UNCONJUGATED 0.17 mg/dL (0.0-0.6); CALCIUM 9.6 mg/dL (8.5-10.1); CREATININE SERUM 0.74 mg/dL (0.55-1.02); GFR 86.06; MAGNESIUM 1.6 mg/dL (1.8-2.4); PHOSPHOROUS 2.8 mg/dL (2.5-4.9); POTASSIUM 4.28 mEq/L (3.5-5.1); TOTAL PROTEIN 7.4 gm/dL (6.4-8.2)
[2024-06-03 13:31] LABS: HEMATOCRIT 32.9 % (36.0-45.00); HEMOGLOBIN 10.8 g/dL (12.0-15.00); MEAN CELL VOLUME 82.5 fL (80.00-100.00); MEAN CORPUSCULAR HEMOGLOBIN 27.1 pg (27.00-32.0); MEAN CORPUSCULAR HGB CONC 32.8 g/dl (32.0-36.0); PLATELET COUNT 397 K/uL (150-450); RED BLOOD COUNT 3.98 M/uL (4.00-6.00); RED CELL DISTRIBUTION WIDTH 19.8 % (11.5-14.5)
[2024-06-03 16:00] VITALS: BP 130/80; O2SAT 97
[2024-06-03] MEDS ORDERED: POTASSIUM CHLORIDE 20MEQ/100ML H2O PB IV ONE (17:15)
[2024-06-04 01:13] VITALS: BP 98/66; O2SAT 100
[2024-06-04 08:11] VITALS: BP 107/73; O2SAT 97
[2024-06-04] MEDS ORDERED: LOPERAMIDE HCL 2 MG CAPSULE PO NR (13:00)
[2024-06-04 16:57] VITALS: BP 124/68; O2SAT 100
[2024-06-04] MEDS ORDERED: LOPERAMIDE HCL 2 MG CAPSULE PO SCH (17:00)
[2024-06-05] VITALS: BP 136/86; O2SAT 100
[2024-06-05 08:00] VITALS: BP 132/82; O2SAT 100
[2024-06-05 20:06] VITALS: BP 134/86; O2SAT 97
[2024-06-05] MEDS ORDERED: FAMOtidine 20 MG TABLET PO SCH (21:00)
[2024-06-06 00:30] VITALS: BP 132/74; O2SAT 100
[2024-06-06 07:45] LABS: HEMATOCRIT 31.3 % (36.0-45.00); HEMOGLOBIN 10.4 g/dL (12.0-15.00); MEAN CELL VOLUME 81.4 fL (80.00-100.00); MEAN CORPUSCULAR HGB CONC 33.1 g/dl (32.0-36.0); PLATELET COUNT 330 K/uL (150-450); RED BLOOD COUNT 3.85 M/uL (4.00-6.00); RED CELL DISTRIBUTION WIDTH 19.9 % (11.5-14.5)
[2024-06-06 08:28] VITALS: BP 123/85; O2SAT 97
[2024-06-06 09:07] LABS: ALBUMIN 2.4 gm/dL (3.4-5.0); ALKALINE PHOSPHATASE 72 U/L (50-136); ALT/SGPT 88 U/L (12-78); ANION GAP 11 (10.0-20.0); AST/SGOT 25 U/L (15-37); BILIRUBIN TOTAL 0.36 mg/dL (0.3-1.2); BILIRUBIN,CONJUGATED 0.18 mg/dL (0.0-0.2); BILIRUBIN,UNCONJUGATED 0.18 mg/dL (0.0-0.6); CALCIUM 8.1 mg/dL (8.5-10.1); CARBON DIOXIDE 24 mEq/L (21-32); CHLORIDE 114 mmol/L (98-107); CREATININE SERUM 0.62 mg/dL (0.55-1.02); GFR 105.56; GLUCOSE FASTING 80 mg/dL (65-100); PHOSPHOROUS 3.8 mg/dL (2.5-4.9); POTASSIUM 3.53 mEq/L (3.5-5.1); SODIUM 145 mmol/L (136-145); TOTAL PROTEIN 6.1 gm/dL (6.4-8.2)
[2024-06-06 09:43] LABS: BLOOD UREA NITROGEN < 1 mg/dL (7-18); BUN CREA RATIO 2 (7.0-25.0); OSMOLALITY SERUM 283 MOSM/KG (275-295)
[2024-06-06] MEDS ORDERED: LOPERAMIDE HCL 2 MG CAPSULE PO SCH (11:00)
[2024-06-06] MEDS ORDERED: MAGNESIUM SULFATE IN WATER 2 GM/50 ML PIGGYBAG IV NR (11:45)
[2024-06-06] MEDS ORDERED: FAMOTIDINE20 MG PO (11:59)
[2024-06-06] MEDS ORDERED: LOPERAMIDE2 MG PO (11:59)
== END 2024-06-06 12:33 | disposition home or self-care (01) | DRG 742 ==
LOC: ER 12:22 → SURG 16:04 → SEC-K 16:04 → SURH 16:04 → SURG 23:20 → SURH 05-14 13:58
PROVIDERS: Emergency Medicine; Internal Medicine; Internal Medicine Geriatric Medicine; Specialist; Surgery; ADMIT Obstetrics & Gynecology Gynecology; ATTEND Obstetrics & Gynecology Gynecology
PROC: 0DH67UZ Insertion of Feeding Device into Stomach, Via Natural or Artificial Opening (ICD-10-PCS; 2024-05-08)
PROC: 3E0336Z Introduction of Nutritional Substance into Peripheral Vein, Percutaneous Approach (ICD-10-PCS; 2024-05-09)
PROC: 05HB33Z Insertion of Infusion Device into Right Basilic Vein, Percutaneous Approach (ICD-10-PCS; 2024-05-09)
PROC: 30233N1 Transfusion of Nonautologous Red Blood Cells into Peripheral Vein, Percutaneous Approach (ICD-10-PCS; 2024-05-09)
PROC: BW21ZZZ Computerized Tomography (CT Scan) of Abdomen and Pelvis (ICD-10-PCS; 2024-05-11)
PROC: 0UT94ZZ Resection of Uterus, Percutaneous Endoscopic Approach (ICD-10-PCS; 2024-05-14)
PROC: 0UT74ZZ Resection of Bilateral Fallopian Tubes, Percutaneous Endoscopic Approach (ICD-10-PCS; 2024-05-14)
PROC: 0DNU4ZZ Release Omentum, Percutaneous Endoscopic Approach (ICD-10-PCS; 2024-05-14)
PROC: 0TN74ZZ Release Left Ureter, Percutaneous Endoscopic Approach (ICD-10-PCS; 2024-05-14)
PROC: 0TN64ZZ Release Right Ureter, Percutaneous Endoscopic Approach (ICD-10-PCS; 2024-05-14)
PROC: 0DNW4ZZ Release Peritoneum, Percutaneous Endoscopic Approach (ICD-10-PCS; 2024-05-14)
PROC: 0D1B4Z4 Bypass Ileum to Cutaneous, Percutaneous Endoscopic Approach (ICD-10-PCS; 2024-05-14)
PROC: 0DTP4ZZ Resection of Rectum, Percutaneous Endoscopic Approach (ICD-10-PCS; 2024-05-14)
PROC: 0WBH4ZZ Excision of Retroperitoneum, Percutaneous Endoscopic Approach (ICD-10-PCS; 2024-05-14)
PROC: 0DTJ4ZZ Resection of Appendix, Percutaneous Endoscopic Approach (ICD-10-PCS; 2024-05-14)
PROC: 0W9H4ZZ Drainage of Retroperitoneum, Percutaneous Endoscopic Approach (ICD-10-PCS; 2024-05-14)
PROC: 0DJD8ZZ Inspection of Lower Intestinal Tract, Via Natural or Artificial Opening Endoscopic (ICD-10-PCS; 2024-05-14)
PROC: 0TJB8ZZ Inspection of Bladder, Via Natural or Artificial Opening Endoscopic (ICD-10-PCS; 2024-05-14)
PROC: 0T788DZ Dilation of Bilateral Ureters with Intraluminal Device, Via Natural or Artificial Opening Endoscopic (ICD-10-PCS; 2024-05-14)
PROC: 0UT24ZZ Resection of Bilateral Ovaries, Percutaneous Endoscopic Approach (ICD-10-PCS; principal; 2024-05-14 07:00)
PROC: BW21ZZZ Computerized Tomography (CT Scan) of Abdomen and Pelvis (ICD-10-PCS; 2024-05-20)
PROC: BW21Y0Z Computerized Tomography (CT Scan) of Abdomen and Pelvis using Other Contrast, Unenhanced and Enhanced (ICD-10-PCS; 2024-05-29)
PROC: BB24ZZZ Computerized Tomography (CT Scan) of Bilateral Lungs (ICD-10-PCS; 2024-05-29)
PROC: B54CZZZ Ultrasonography of Left Lower Extremity Veins (ICD-10-PCS; 2024-06-04)
DX: D25.0 Submucous leiomyoma of uterus (principal); K65.8 Other peritonitis; K56.50 Intestinal adhesions [bands], unspecified as to partial versus complete obstruction; K56.0 Paralytic ileus; D68.4 Acquired coagulation factor deficiency; J90 Pleural effusion, not elsewhere classified; J98.11 Atelectasis; J95.89 Other postprocedural complications and disorders of respiratory system, not elsewhere classified; N80.203 Endometriosis of bilateral fallopian tubes, unspecified depth; N80.103 Endometriosis of bilateral ovaries, unspecified depth; N80.519 Endometriosis of the rectum, unspecified depth; N80.03 Adenomyosis of the uterus; D64.9 Anemia, unspecified; N80.50 Endometriosis of intestine, unspecified; N80.529 Endometriosis of the sigmoid colon, unspecified depth; F10.90 Alcohol use, unspecified, uncomplicated; T81.89XA Other complications of procedures, not elsewhere classified, initial encounter; Y65.8 Other specified misadventures during surgical and medical care; E88.09 Other disorders of plasma-protein metabolism, not elsewhere classified; D72.829 Elevated white blood cell count, unspecified; N70.93 Salpingitis and oophoritis, unspecified; Z93.2 Ileostomy status

== ENCOUNTER 2024-06-22 16:52 | Inpatient (IN) | payer OTHER ==
[~2024-06-22] VITALS: Ht 157.5 cm; Wt 58.5 kg
[~2024-06-22 16:52] MED LIST: FAMOTIDINE20 MG PO; LOPERAMIDE2 MG PO
--- NOTE | 2024-06-22 17:24 | NUR ---
SE RECIBE PTE FEMENINA ALERTA Y ORIENTADA X3 EN COMPANIA DE FAMILIAR REFIERE 5 EPISODIOS DE VOMITOS Y DOLOR ABDOMINAL DESDE BRUCE. PTE REFERIDA POR DRA.MARLA DURBIN POR ILEOSTOMIA Y CREATININA EN 9. SE PRESENTA PTE Y SE UBICA EN AREA DE OBSERVACION.
[2024-06-22] MEDS ORDERED: 0.9 % SODIUM CHLORIDE 1,000 ML IV SCH (17:45)
--- NOTE | 2024-06-22 18:19 | NUR ---
SE EDUCA SOBRE TX MEDICO, ESTA REFIERE ENTENDER. SE EXTRAEN MUESTRAS DE LABORATORIO Y SE ADMINISTRAN MEDICAMENTOS [facility]DEN MEDICA. PEDIENTE U/A.
[2024-06-22] MEDS ORDERED: DEXTROSE 5 % AND 0.9 % NACL 1,000 ML IV SCH (18:30)
[2024-06-22] MEDS ORDERED: ONDANSETRON HCL 2 MG/ML VIAL IV PRN (18:45)
[2024-06-22] MEDS ORDERED: FAMOTIDINE/PF 20 MG/2 ML VIAL IV SCH (21:00)
[2024-06-22 22:42] VITALS: BP 106/78
[2024-06-23] VITALS (9 sets, daily range): BP systolic 94–132; BP diastolic 60–77; O2SAT 98–100
[2024-06-23 01:59] LABS: INR 1.15; PARTIAL THROMBOPLASTIN TIME 27.1 SECONDS (22.0-34.0); PROTHROMBIN TIME 12.4 SECONDS (9.0-11.5)
[2024-06-23 02:06] LABS: HEMATOCRIT 34.5 % (36.0-45.00); HEMOGLOBIN 11.5 g/dL (12.0-15.00); MEAN CELL VOLUME 79.6 fL (80.00-100.00); MEAN CORPUSCULAR HEMOGLOBIN 26.6 pg (27.00-32.0); MEAN CORPUSCULAR HGB CONC 33.4 g/dl (32.0-36.0); PLATELET COUNT 299 K/uL (150-450); RED BLOOD COUNT 4.33 M/uL (4.00-6.00); RED CELL DISTRIBUTION WIDTH 16.4 % (11.5-14.5)
[2024-06-23 03:05] LABS: ALBUMIN 3.5 gm/dL (3.4-5.0); BILIRUBIN TOTAL 0.61 mg/dL (0.3-1.2); CALCIUM 8.3 mg/dL (8.5-10.1); GFR 5.97; GLOBULINA 3.7 G/DL (2.4-3.5); POTASSIUM 4.17 mEq/L (3.5-5.1); TOTAL PROTEIN 7.2 gm/dL (6.4-8.2)
[2024-06-23 03:18] LABS: CREATININE SERUM 7.47 mg/dL (0.55-1.02)
[2024-06-23 05:17] LABS: URINE APPEARANCE Cloudy; URINE BILIRRUBIN Negative (NEGATIVE); URINE BLOOD Moderate; URINE COLOR Yellow; URINE GLUCOSE Negative (NEGATIVE); URINE KETONE Negative (NEGATIVE); URINE LEUKOCYTE Moderate; URINE NITRATE Negative; URINE PROTEIN Trace (NEGATIVE); URINE UROBILINOGEN 0.2 E.U./dl
[2024-06-23 05:21] LABS: URINE BACTERIA 323.1 uL (0.0-1933); URINE CAST 12.07 uL (0.0-1.40); URINE EPITHELIAL CELLS 31.1 uL (0.0-38.8); URINE RBC 28.7 uL (0.0-20.8); URINE WBC 101.7 uL (0.0-23.2)
[2024-06-23 05:50] LABS: URINE MUCUS MODERATE
[2024-06-23 07:47] LABS: HEMATOCRIT 32.3 % (36.0-45.00); HEMOGLOBIN 10.8 g/dL (12.0-15.00); MEAN CELL VOLUME 80.1 fL (80.00-100.00); MEAN CORPUSCULAR HEMOGLOBIN 26.8 pg (27.00-32.0); MEAN CORPUSCULAR HGB CONC 33.5 g/dl (32.0-36.0); PLATELET COUNT 271 K/uL (150-450); RED BLOOD COUNT 4.03 M/uL (4.00-6.00); RED CELL DISTRIBUTION WIDTH 16.4 % (11.5-14.5)
[2024-06-23 08:03] LABS: ALBUMIN 3.2 gm/dL (3.4-5.0); BILIRUBIN TOTAL 0.54 mg/dL (0.3-1.2); CALCIUM 8.4 mg/dL (8.5-10.1); GLOBULINA 3.6 G/DL (2.4-3.5); PHOSPHOROUS 5.2 mg/dL (2.5-4.9); POTASSIUM 3.45 mEq/L (3.5-5.1); TOTAL PROTEIN 6.8 gm/dL (6.4-8.2)
[2024-06-23 08:10] LABS: GFR 7.57
[2024-06-23 08:11] LABS: CREATININE SERUM 6.08 mg/dL (0.55-1.02)
[2024-06-23 08:12] LABS: C-REACTIVE PROTEIN 0.32 MG/DL (0.00-0.29); MAGNESIUM 1.4 mg/dL (1.8-2.4)
[2024-06-23] MEDS ORDERED: ENOXAPARIN SODIUM 30 MG/0.3 ML SYRINGE SUBCUTANEO SCH (11:33)
[2024-06-24] VITALS (8 sets, daily range): BP systolic 92–108; BP diastolic 67–74; O2SAT 97–100
[2024-06-24 12:07] LABS: ALBUMIN 3.3 gm/dL (3.4-5.0); BILIRUBIN TOTAL 0.32 mg/dL (0.3-1.2); CALCIUM 8.5 mg/dL (8.5-10.1); CREATININE SERUM 1.71 mg/dL (0.55-1.02); GFR 32.74; GLOBULINA 3.9 G/DL (2.4-3.5); POTASSIUM 3.45 mEq/L (3.5-5.1); TOTAL PROTEIN 7.2 gm/dL (6.4-8.2)
[2024-06-24] MEDS ORDERED: POTASSIUM CHLORIDE IN WATER 100 ML IV NR (13:15)
[2024-06-25] VITALS (9 sets, daily range): BP systolic 102–120; BP diastolic 73–79; O2SAT 98–100
[2024-06-25] MEDS ORDERED: SODIUM CHLORIDE 0.45 % 1,000 ML IV SCH (10:00)
[2024-06-25] MEDS ORDERED: RINGERS SOLUTION,LACTATED 1,000 ML IV SCH (16:45)
[2024-06-26] VITALS (8 sets, daily range): BP systolic 116–127; BP diastolic 77–90; O2SAT 97–100
[2024-06-26 05:37] LABS: HEMATOCRIT 33.9 % (36.0-45.00); MEAN CELL VOLUME 82.4 fL (80.00-100.00); MEAN CORPUSCULAR HGB CONC 32.5 g/dl (32.0-36.0); PLATELET COUNT 311 K/uL (150-450); RED BLOOD COUNT 4.12 M/uL (4.00-6.00); RED CELL DISTRIBUTION WIDTH 16.1 % (11.5-14.5)
[2024-06-26 05:40] LABS: MEAN CORPUSCULAR HEMOGLOBIN 26.6 pg (27.00-32.0)
[2024-06-26 05:58] LABS: CALCIUM 8.6 mg/dL (8.5-10.1); CREATININE SERUM 1.06 mg/dL (0.55-1.02); GFR 56.85; PHOSPHOROUS 3.5 mg/dL (2.5-4.9); POTASSIUM 4.08 mEq/L (3.5-5.1)
[2024-06-26 07:25] LABS: MAGNESIUM 0.8 mg/dL (1.8-2.4)
[2024-06-26] MEDS ORDERED: MAGNESIUM SULFATE IN WATER 50 ML IV NR (08:00)
[2024-06-26] MEDS ORDERED: MAGNESIUM CHLORIDE 70 MG TABLET.DR PO SCH (09:00)
[2024-06-26] MEDS ORDERED: FAMOtidine 20 MG TABLET PO SCH (21:00)
[2024-06-27] VITALS (7 sets, daily range): BP systolic 111; BP diastolic 77; O2SAT 99–100
[2024-06-27] MEDS ORDERED: MIDAZOLAM HCL 2 MG/2 ML VIAL IV ONE (08:15)
[2024-06-27] MEDS ORDERED: fentaNYL CITRATE 50 MCG/ML AMPUL IV PUSH ONE (08:15)
[2024-06-27] MEDS ORDERED: DIPHENHYDRAMINE HCL 50 MG/ML VIAL 1ML IV ONE (08:15)
[2024-06-27] MEDS ORDERED: ENOXAPARIN SODIUM 40 MG/0.4 ML SYRINGE SUBCUTANEO SCH (17:00)
[2024-06-28] VITALS: BP 129/85; O2SAT 100; O2SAT 98
[2024-06-28 04:48] VITALS: O2SAT 98
[2024-06-28 08:47] LABS: HEMATOCRIT 37.4 % (36.0-45.00); MEAN CELL VOLUME 82.5 fL (80.00-100.00); MEAN CORPUSCULAR HEMOGLOBIN 26.5 pg (27.00-32.0); MEAN CORPUSCULAR HGB CONC 32.2 g/dl (32.0-36.0); PLATELET COUNT 328 K/uL (150-450); RED BLOOD COUNT 4.54 M/uL (4.00-6.00); RED CELL DISTRIBUTION WIDTH 15.5 % (11.5-14.5)
[2024-06-28 09:32] VITALS: BP 107/61; O2SAT 100
[2024-06-28 09:53] LABS: CALCIUM 9.6 mg/dL (8.5-10.1); CREATININE SERUM 1.08 mg/dL (0.55-1.02); GFR 55.63; MAGNESIUM 1.6 mg/dL (1.8-2.4); PHOSPHOROUS 4.6 mg/dL (2.5-4.9); POTASSIUM 3.77 mEq/L (3.5-5.1)
[2024-06-28 11:00] VITALS: O2SAT 99
[2024-06-28] MEDS ORDERED: MAGNESIUM SULFATE IN WATER 50 ML IV NR (11:00)
[2024-06-28] MEDS ORDERED: LOPERAMIDE HCL 2 MG CAPSULE PO SCH (13:42)
[2024-06-28 17:07] VITALS: O2SAT 99
[2024-06-28 20:37] VITALS: O2SAT 100
[2024-06-29] VITALS (8 sets, daily range): BP systolic 91–126; BP diastolic 59–87; O2SAT 96–100
[2024-06-29 06:39] LABS: HEMATOCRIT 39.5 % (36.0-45.00); HEMOGLOBIN 12.8 g/dL (12.0-15.00); MEAN CORPUSCULAR HEMOGLOBIN 26.6 pg (27.00-32.0); MEAN CORPUSCULAR HGB CONC 32.5 g/dl (32.0-36.0); PLATELET COUNT 345 K/uL (150-450); RED BLOOD COUNT 4.81 M/uL (4.00-6.00); RED CELL DISTRIBUTION WIDTH 15.6 % (11.5-14.5)
[2024-06-29 07:09] LABS: ALBUMIN 3.7 gm/dL (3.4-5.0); BILIRUBIN TOTAL 0.5 mg/dL (0.3-1.2); CALCIUM 9.5 mg/dL (8.5-10.1); CREATININE SERUM 1.36 mg/dL (0.55-1.02); GFR 42.64; GLOBULINA 4.4 G/DL (2.4-3.5); MAGNESIUM 2.1 mg/dL (1.8-2.4); PHOSPHOROUS 4.5 mg/dL (2.5-4.9); POTASSIUM 3.72 mEq/L (3.5-5.1); TOTAL PROTEIN 8.1 gm/dL (6.4-8.2)
[2024-06-29] MEDS ORDERED: 0.9 % SODIUM CHLORIDE 1,000 ML IV SCH (10:00)
[2024-06-30] VITALS (10 sets, daily range): BP systolic 87–100; BP diastolic 55–71; O2SAT 97–100
[2024-06-30 08:03] LABS: HEMOGLOBIN 11.4 g/dL (12.0-15.00); MEAN CELL VOLUME 82.1 fL (80.00-100.00); MEAN CORPUSCULAR HEMOGLOBIN 26.8 pg (27.00-32.0); MEAN CORPUSCULAR HGB CONC 32.6 g/dl (32.0-36.0); PLATELET COUNT 311 K/uL (150-450); RED BLOOD COUNT 4.27 M/uL (4.00-6.00); RED CELL DISTRIBUTION WIDTH 15.4 % (11.5-14.5)
[2024-06-30 08:42] LABS: CALCIUM 9.2 mg/dL (8.5-10.1); CREATININE SERUM 1.27 mg/dL (0.55-1.02); GFR 46.15; MAGNESIUM 1.7 mg/dL (1.8-2.4); PHOSPHOROUS 4.9 mg/dL (2.5-4.9); POTASSIUM 3.86 mEq/L (3.5-5.1)
[2024-06-30] MEDS ORDERED: PANTOPRAZOLE SODIUM 40 MG/VIAL VIAL IV PUSH SCH (17:00)
[2024-06-30] MEDS ORDERED: CHOLESTYRAMINE/ASPARTAME LIGHT 4 G/PKT PACKET PO SCH (17:00)
[2024-07-01] VITALS (8 sets, daily range): BP systolic 90–93; BP diastolic 54–61; O2SAT 90–100
[2024-07-01 08:02] LABS: CREATININE SERUM 1.01 mg/dL (0.55-1.02); GFR 60.11; POTASSIUM 4.14 mEq/L (3.5-5.1)
[2024-07-02] VITALS (8 sets, daily range): BP systolic 84–103; BP diastolic 52–75; O2SAT 89–100
[2024-07-02 07:28] LABS: CALCIUM 9.1 mg/dL (8.5-10.1); CREATININE SERUM 0.91 mg/dL (0.55-1.02); GFR 67.79; PHOSPHOROUS 3.6 mg/dL (2.5-4.9); POTASSIUM 4.21 mEq/L (3.5-5.1)
[2024-07-02 07:29] LABS: MAGNESIUM 1.4 mg/dL (1.8-2.4)
[2024-07-02 07:46] LABS: HEMATOCRIT 34.2 % (36.0-45.00); HEMOGLOBIN 11.3 g/dL (12.0-15.00); MEAN CORPUSCULAR HEMOGLOBIN 26.8 pg (27.00-32.0); MEAN CORPUSCULAR HGB CONC 33.1 g/dl (32.0-36.0); PLATELET COUNT 289 K/uL (150-450); RED BLOOD COUNT 4.23 M/uL (4.00-6.00)
[2024-07-02] MEDS ORDERED: MAGNESIUM SULFATE IN WATER 50 ML IV NR (12:30)
[2024-07-02] MEDS ORDERED: MAGNESIUM CHLOR70 MG PO (14:21)
[2024-07-02] MEDS ORDERED: CHOLESTYRAMINE L4 GM PO (14:21)
[2024-07-02] MEDS ORDERED: LOPERAMIDE2 MG PO (14:21)
== END 2024-07-03 07:57 | disposition home or self-care (01) | DRG 684 ==
LOC: ER 16:55 → SURH 20:24
PROVIDERS: General Practice; Internal Medicine; ADMIT Internal Medicine Geriatric Medicine; ATTEND Internal Medicine Geriatric Medicine
PROC: BW40ZZZ Ultrasonography of Abdomen (ICD-10-PCS; 2024-06-22)
PROC: 4A12X4Z Monitoring of Cardiac Electrical Activity, External Approach (ICD-10-PCS; 2024-06-22)
PROC: 0DJD8ZZ Inspection of Lower Intestinal Tract, Via Natural or Artificial Opening Endoscopic (ICD-10-PCS; principal; 2024-06-27)
PROC: 0UJH8ZZ Inspection of Vagina and Cul-de-sac, Via Natural or Artificial Opening Endoscopic (ICD-10-PCS; 2024-06-27)
PROC: BW21ZZZ Computerized Tomography (CT Scan) of Abdomen and Pelvis (ICD-10-PCS; 2024-06-27)
DX: N17.9 Acute kidney failure, unspecified (principal); E86.0 Dehydration; E87.6 Hypokalemia; N80.9 Endometriosis, unspecified; N13.30 Unspecified hydronephrosis; L92.8 Other granulomatous disorders of the skin and subcutaneous tissue; I12.9 Hypertensive chronic kidney disease with stage 1 through stage 4 chronic kidney disease, or unspecified chronic kidney disease; N18.9 Chronic kidney disease, unspecified; Z90.722 Acquired absence of ovaries, bilateral; Z93.2 Ileostomy status

== ENCOUNTER 2024-08-20 10:14 | Inpatient (IN) | payer OTHER ==
[~2024-08-20] VITALS: Ht 157.5 cm; Wt 0.5 kg
[~2024-08-20 10:14] MED LIST changes: +CHOLESTYRAMINE L4 GM PO; +MAGNESIUM CHLOR70 MG PO
[2024-08-20] MEDS ORDERED: IMODIUM A-D2 M2 (11:36)
[2024-08-20] MEDS ORDERED: 0.9 % SODIUM CHLORIDE 1,000 ML IV SCH ×2 (12:00→14:15)
[2024-08-20] MEDS ORDERED: ONDANSETRON HCL 2 MG/ML VIAL IV ONE (12:00)
[2024-08-20 13:09] LABS: HEMATOCRIT 44.7 % (36.0-45.00); HEMOGLOBIN 14.4 g/dL (12.0-15.00); MEAN CELL VOLUME 84.6 fL (80.00-100.00); MEAN CORPUSCULAR HEMOGLOBIN 27.3 pg (27.00-32.0); MEAN CORPUSCULAR HGB CONC 32.3 g/dl (32.0-36.0); PLATELET COUNT 374 K/uL (150-450); RED BLOOD COUNT 5.28 M/uL (4.00-6.00); RED CELL DISTRIBUTION WIDTH 16.2 % (11.5-14.5)
[2024-08-20 13:28] LABS: INR 1.09; PARTIAL THROMBOPLASTIN TIME 24.9 SECONDS (22.0-34.0); PROTHROMBIN TIME 11.8 SECONDS (9.0-11.5)
[2024-08-20 13:29] LABS: BILIRUBIN TOTAL 0.64 mg/dL (0.3-1.2); CALCIUM 9.4 mg/dL (8.5-10.1); CREATININE SERUM 1.53 mg/dL (0.55-1.02); GFR 37.22; GLOBULINA 4.6 G/DL (2.4-3.5); POTASSIUM 3.43 mEq/L (3.5-5.1); TOTAL PROTEIN 8.6 gm/dL (6.4-8.2)
[2024-08-20] MEDS ORDERED: ONDANSETRON HCL 2 MG/ML VIAL IV PRN (14:30)
[2024-08-20] MEDS ORDERED: FAMOTIDINE/PF 20 MG/10 ML SYRINGE IV SCH (21:00)
[2024-08-20 22:12] VITALS: BP 143/75
[2024-08-21 00:58] VITALS: BP 105/70; O2SAT 100
[2024-08-21 08:00] VITALS: BP 98/69; O2SAT 99
[2024-08-21 08:45] LABS: HEMATOCRIT 39.6 % (36.0-45.00); HEMOGLOBIN 12.7 g/dL (12.0-15.00); MEAN CELL VOLUME 85.4 fL (80.00-100.00); MEAN CORPUSCULAR HEMOGLOBIN 27.5 pg (27.00-32.0); MEAN CORPUSCULAR HGB CONC 32.2 g/dl (32.0-36.0); PLATELET COUNT 306 K/uL (150-450); RED BLOOD COUNT 4.64 M/uL (4.00-6.00); RED CELL DISTRIBUTION WIDTH 16.6 % (11.5-14.5)
[2024-08-21] MEDS ORDERED: PHYTONADIONE 10 MG/ML AMPUL IV SCH (09:00)
[2024-08-21 09:11] LABS: COL EPI 72 SECONDS (82-175)
[2024-08-21 09:18] LABS: ALBUMIN 2.9 gm/dL (3.4-5.0); BILIRUBIN TOTAL 0.28 mg/dL (0.3-1.2); CALCIUM 8.5 mg/dL (8.5-10.1); CREATININE SERUM 1.41 mg/dL (0.55-1.02); GFR 40.9; GLOBULINA 3.4 G/DL (2.4-3.5); MAGNESIUM 1.5 mg/dL (1.8-2.4); PHOSPHOROUS 4.1 mg/dL (2.5-4.9); POTASSIUM 3.88 mEq/L (3.5-5.1); TOTAL PROTEIN 6.3 gm/dL (6.4-8.2)
[2024-08-21 16:00] VITALS: BP 99/64; O2SAT 100
[2024-08-21] MEDS ORDERED: MAGNESIUM SULFATE IN WATER 50 ML IV NR (16:00)
[2024-08-21] MEDS ORDERED: FAMOTIDINE/PF 20 MG/2 ML VIAL IV SCH (21:00)
[2024-08-22] MEDS ORDERED: METRONIDAZOLE/SODIUM CHLORIDE 200 ML IV NR
[2024-08-22] MEDS ORDERED: CEFTRIAXONE SODIUM 2,000 MG in 0.9 % SODIUM CHLORIDE 50 ML IV NR
[2024-08-22 00:19] VITALS: BP 111/68; O2SAT 100
[2024-08-22 08:00] VITALS: BP 100/64; O2SAT 99
[2024-08-22] MEDS ORDERED: LIDOCAINE HCL 1%/EPINEPHRINE 20ML VIAL IJ ONE (19:00)
[2024-08-22] MEDS ORDERED: METRONIDAZOLE/SODIUM CHLORIDE 500 MG/100 ML PIGGYBACK IV ONE (19:00)
[2024-08-22] MEDS ORDERED: POVIDONE-IODINE 118 ML BOTT TOP ONE (19:00)
[2024-08-22] MEDS ORDERED: BUPIVACAINE HCL 30 ML VIAL IJ ONE (19:00)
[2024-08-22] MEDS ORDERED: CEFTRIAXONE SODIUM 2,000 MG VIAL IV ONE (19:00)
[2024-08-22] MEDS ORDERED: MORPHINE SULFATE 4 MG/ML CARTRIDGE IV PRN (19:45)
[2024-08-22] MEDS ORDERED: ONDANSETRON HCL 2 MG/ML VIAL IV PRN (19:45)
[2024-08-22] MEDS ORDERED: OxyCODONE HCL 5 MG TABLET (ROXICODONE) PO PRN (19:45)
[2024-08-22] MEDS ORDERED: RINGERS SOLUTION,LACTATED 1,000 ML IV SCH (19:45)
[2024-08-22] MEDS ORDERED: ACETAMINOPHEN 500 MG GEL..CAP PO SCH (20:00)
[2024-08-22] MEDS ORDERED: MORPHINE SULFATE 4 MG/ML VIAL IV ONE ×2 (20:15→20:45)
[2024-08-22] MEDS ORDERED: FAMOTIDINE/PF 20 MG/2 ML VIAL ONE (20:53)
[2024-08-22] MEDS ORDERED: SIMETHICONE 125 MG CAPSULE PO SCH (21:00)
[2024-08-22] MEDS ORDERED: FAMOTIDINE/PF 20 MG/2 ML VIAL IV PUSH SCH (21:00)
[2024-08-22] MEDS ORDERED: CELECOXIB 200 MG CAPSULE PO SCH (21:00)
[2024-08-22 21:29] VITALS: BP 114/77; O2SAT 97
[2024-08-22 21:36] LABS: HEMATOCRIT 36.6 % (36.0-45.00); HEMOGLOBIN 12.1 g/dL (12.0-15.00); MEAN CELL VOLUME 84.1 fL (80.00-100.00); MEAN CORPUSCULAR HEMOGLOBIN 27.7 pg (27.00-32.0); MEAN CORPUSCULAR HGB CONC 32.9 g/dl (32.0-36.0); PLATELET COUNT 268 K/uL (150-450); RED BLOOD COUNT 4.35 M/uL (4.00-6.00); RED CELL DISTRIBUTION WIDTH 15.8 % (11.5-14.5)
[2024-08-23 00:56] VITALS: BP 99/65; O2SAT 98
[2024-08-23] MEDS ORDERED: GABAPENTIN 300 MG CAPSULE PO SCH (01:00)
[2024-08-23] MEDS ORDERED: METOCLOPRAMIDE HCL 5 MG/ML VIAL IV SCH (01:00)
[2024-08-23 08:00] VITALS: BP 113/74; O2SAT 100
[2024-08-23 08:52] LABS: HEMATOCRIT 37.1 % (36.0-45.00); HEMOGLOBIN 12.2 g/dL (12.0-15.00); MEAN CELL VOLUME 82.7 fL (80.00-100.00); MEAN CORPUSCULAR HEMOGLOBIN 27.2 pg (27.00-32.0); MEAN CORPUSCULAR HGB CONC 32.9 g/dl (32.0-36.0); PLATELET COUNT 276 K/uL (150-450); RED BLOOD COUNT 4.49 M/uL (4.00-6.00); RED CELL DISTRIBUTION WIDTH 16.6 % (11.5-14.5)
[2024-08-23] MEDS ORDERED: LACTOBACILLUS ACIDOPHILUS 1 CAP CAP PO SCH (09:00)
[2024-08-23] MEDS ORDERED: HYOSCYAMINE SULFATE 0.125 MG TAB.SUBL SL SCH (09:00)
[2024-08-23 09:24] LABS: ALBUMIN 2.5 gm/dL (3.4-5.0); CALCIUM 8.2 mg/dL (8.5-10.1); CREATININE SERUM 1.13 mg/dL (0.55-1.02); GFR 52.8; MAGNESIUM 1.6 mg/dL (1.8-2.4); PHOSPHOROUS 3.5 mg/dL (2.5-4.9); POTASSIUM 3.55 mEq/L (3.5-5.1)
[2024-08-23] MEDS ORDERED: CLOTRIMAZOLE/BETAMETHASONE DIP 15 GM TUBE TOP SCH (11:41)
[2024-08-23] MEDS ORDERED: MAGNESIUM SULFATE IN WATER 50 ML IV NR (12:00)
[2024-08-23 16:00] VITALS: BP 113/76; O2SAT 99
[2024-08-23] MEDS ORDERED: ENOXAPARIN SODIUM 40 MG/0.4 ML SYRINGE SUBCUTANEO SCH (17:00)
[2024-08-23] MEDS ORDERED: POLYETHYLENE GLYCOL 3350 17 GM BLIST.PACK PO SCH (17:00)
[2024-08-24 01:07] VITALS: BP 106/72; O2SAT 98
[2024-08-24 06:17] LABS: HEMATOCRIT 35.4 % (36.0-45.00); MEAN CORPUSCULAR HEMOGLOBIN 27.7 pg (27.00-32.0); MEAN CORPUSCULAR HGB CONC 33.8 g/dl (32.0-36.0); PLATELET COUNT 282 K/uL (150-450); RED BLOOD COUNT 4.32 M/uL (4.00-6.00); RED CELL DISTRIBUTION WIDTH 16.7 % (11.5-14.5)
[2024-08-24 06:35] LABS: CALCIUM 7.9 mg/dL (8.5-10.1); CREATININE SERUM 0.91 mg/dL (0.55-1.02); GFR 67.79; MAGNESIUM 2.2 mg/dL (1.8-2.4); PHOSPHOROUS 2.7 mg/dL (2.5-4.9); POTASSIUM 3.18 mEq/L (3.5-5.1)
[2024-08-24] MEDS ORDERED: HYOSCYAMINE SULFATE 0.125 MG TAB.SUBL SL PRN (07:39)
[2024-08-24 08:00] VITALS: BP 122/83; O2SAT 98
[2024-08-24] MEDS ORDERED: ENOXAPARIN SODIUM 40 MG/0.4 ML SYRINGE SUBCUTANEO SCH (09:00)
[2024-08-24] MEDS ORDERED: POTASSIUM CHLORIDE 20MEQ/100ML H2O PB IV NR (10:00)
[2024-08-24 16:00] VITALS: BP 118/78; O2SAT 98
[2024-08-25 01:30] VITALS: BP 114/78; O2SAT 100
[2024-08-25] MEDS ORDERED: HYOSCYAMINE0.125 M1 SL (07:22)
[2024-08-25] MEDS ORDERED: CELEBREX200MG PO (07:22)
[2024-08-25] MEDS ORDERED: GABAPENTIN300 MG PO (07:23)
[2024-08-25] MEDS ORDERED: INTESTINEX680 M1 PO (07:23)
[2024-08-25 09:22] VITALS: BP 119/77; O2SAT 98
== END 2024-08-25 12:18 | disposition home or self-care (01) | DRG 331 ==
LOC: ER 10:15 → SURH 14:51
PROVIDERS: General Practice; Internal Medicine Geriatric Medicine; ADMIT Surgery; ATTEND Surgery
PROC: 0DNB4ZZ Release Ileum, Percutaneous Endoscopic Approach (ICD-10-PCS; 2024-08-22)
PROC: 0UJH4ZZ Inspection of Vagina and Cul-de-sac, Percutaneous Endoscopic Approach (ICD-10-PCS; 2024-08-22)
PROC: 0DBB4ZZ Excision of Ileum, Percutaneous Endoscopic Approach (ICD-10-PCS; principal; 2024-08-22 17:00)
DX: K66.0 Peritoneal adhesions (postprocedural) (postinfection) (principal); K46.9 Unspecified abdominal hernia without obstruction or gangrene